=== PATIENT | female | born 1990 | race Asian ===

== ENCOUNTER 2018-11-03 19:13 | Emergency (ER) | payer OTHER, MEDICAID ==
[~2018-11-03] VITALS: Ht 162.6 cm; Wt 54.4 kg
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
[2018-11-03 19:33] VITALS: BP 130/76
--- NOTE | 2018-11-03 19:38 | NUR ---
ED Nurse Note: Urine sample sent to lab.
--- NOTE | 2018-11-03 19:47 | NUR ---
ED Nurse Note: Pt went to CT scan.
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
[2018-11-03] MEDS ORDERED: IBUPROFEN600 MG ORAL (20:43)
[2018-11-03] MEDS ORDERED: ROBAXIN500 MG PO (20:43)
[2018-11-03] MEDS ORDERED: Methocarbamol 500mg tab ORAL ONE ×2 (20:55→21:00)
[2018-11-03 20:58] VITALS: BP 124/80
--- NOTE | 2018-11-03 20:58 | NUR ---
ER DISCHARGE NOTE: Patient is cleared to be discharged per ERMD, pt is aox4, on room air, with stable vital signs. pt was given dc and prescription instructions, pt was able to verbalize understanding, pt id band removed without complications. pt is able to ambulate with steady gait. pt took all belongings.
== END 2018-11-03 20:58 | disposition home or self-care (01) ==
LOC: EDBD 19:13 → EMR 19:32
DX: S06.0X0A Concussion without loss of consciousness, initial encounter (principal); S16.1XXA Strain of muscle, fascia and tendon at neck level, initial encounter; V43.52XA Car driver injured in collision with other type car in traffic accident, initial encounter; Y92.410 Unspecified street and highway as the place of occurrence of the external cause
CPT/HCPCS: 70450; 72125; 81025; 99284